=== PATIENT | male | born 1985 | race Caucasian/White ===

== ENCOUNTER 2023-03-14 21:08 | Emergency (ER) | payer OTHER, SELFPAY ==
[2023-03-14] VITALS (15 sets, daily range): BP systolic 124–153; BP diastolic 66–89; PULSE 83–87; RESP 14–16; TEMP 36.6; O2SAT 94–98
--- NOTE | ~2023-03-14 | CT_ITS ---
CT of the Abdomen and Pelvis: Indication: Abdominal pain Technique: 2.5 mm axial scans were obtained through the abdomen and pelvis following intravenous adm inistration of 100 cc of Omnipaque 350. Dose reduction technique was used on this scan by utilizing a utomated exposure control and iterative reconstruction technique. The dose-length product (DLP) was 1 436.82 mGy-cm. Findings: Scans through the lung bases are unremarkable. The liver, spleen, pancreas, right adrenal gland, and kidneys are within normal limits. Small gallsto di are present. 1.5 cm left adrenal nodule is indeterminate. No evidence of aortic aneurysm. No lym phadenopathy. There is an extremely large, wide necked ventral hernia containing transverse colon and numerous smal l bowel loops as well as mesenteric fat. No bowel obstruction or bowel wall thickening. Images through the pelvis were performed. Urinary bladder unremarkable. Prostate gland and seminal ve sicles are unremarkable. No ascites. Impression: Very large, wide necked ventral hernia containing colon and small bowel. No bowel obstruction or yancy l wall thickening. Indeterminate 1.5 cm left adrenal nodule. Follow-up MR recommended to assess for adenoma versus other lesion. Cholelithiasis. Reviewed, dictated and finalized at location . Impression: Very large, wide necked ventral hernia containing colon and small bowel. No bow el obstruction or bowel wall thickening. Indeterminate 1.5 cm left adrenal nodule. Follow-up MR recommended to assess fo r adenoma versus other lesion. Cholelithiasis.
[2023-03-14 22:50] LABS: Basophils Absolute Auto 0.1 K/mm3 (0.0-0.1); Basophils Percent Auto 0.7 % (0.2-1.2); Eosinophils Absolute Auto 0.2 K/mm3 (0-0.3); Eosinophils Percent Auto 2.8 % (0-4.4); Hematocrit 45.9 % (42.0-52.0); Hemoglobin 16.1 g/dL (14.0-18.0); Immature Granulocyte Absolute 0.02 K/mm3 (0.00-0.031); Immature Granulocyte Percent A 0.3 % (0-0.5); Lymphocytes Absolute Auto 2.78 K/mm3 (0.9-3.2); Lymphocytes Percent Auto 39.2 % (18.3-44.2); Mean Corpuscular HGB Conc 35.1 g/dl (32-36); Mean Corpuscular Hemoglobin 32.3 pg (26-34); Mean Corpuscular Volume 92.2 fl (80-100); Mean Platelet Volume 11.5 fl (7.4-10.4); Monocytes Absolute Auto 0.6 K/mm3 (0.1-0.6); Neutrophils Absolute Auto 3.4 K/mm3 (1.3-6.7); Platelet Count Result 178 k/mm3 (150-375); Red Blood Count 4.98 M/mm3 (4.6-6.20); Red Cell Distribution Width 12.7 % (11.5-14.5); White Blood Count 7.1 K/mm3 (4.5-10.0)
[2023-03-14 22:51] LABS: Appearance Urine Clear (Clear); Bilirubin Urine Negative (Negative); Blood Urine Negative (Negative); Color Urine Yellow (Yellow); Glucose Urine UA 3+ mg/dL (Negative); Ketones Urine Trace mg/dL (Negative); Leukocyte Esterase Ur Negative LEU/UL (Negative); Nitrate Urine Negative (Negative); Protein Urine Negative (Negative); Urobilinogen Urine 0.2 mg/dL (<2.0)
[2023-03-14 22:53] LABS: Add Urine Microscopic? NO; Specific Grav Ur 1.037 (1.001-1.035)
--- NOTE | 2023-03-14 22:54 | PC.NURSE ---
Patient report received from CAROLE Degroot. All questions answered and care of patient assumed.
[2023-03-14 23:01] LABS: Alanine Aminotransferase 30 U/L (6-50); Albumin Level 4.4 g/dL (3.5-5.1); Alkaline Phosphatase 130 U/L (38-126); Anion Gap 9 mmol/L (8-16); Aspartate Amino Transferase 26 U/L (17-59); Bilirubin,Total 0.5 mg/dL (0.2-1.3); Blood Urea Nitrogen 17 mg/dL (9-20); Calcium 8.5 mg/dL (8.4-10.2); Carbon Dioxide 24 mmol/L (22-30); Chloride 97 mmol/L (98-107); Estimated CRCL calculation 138 ml/min; Estimated Glomerular Filt Rate > 60; Glucose 453 mg/dL (65-110); Lipase 138 U/L (23-300); Potassium 4.3 mmol/L (3.4-5.0); Sodium 130 mmol/L (137-145)
[2023-03-14] MEDS: ONDANSETRON INJ 4 MG/2 ML VIAL IV PUSH (23:45)
[2023-03-14] MEDS: SODIUM CHLORIDE 0.9% IV 1,000 ML 999 ML IV CONT (23:45)
[2023-03-14] MEDS: MORPHINE SULFATE (*CRX) 4 MG/ML INJ IV PUSH (23:46)
[2023-03-15] VITALS: O2SAT 94
[2023-03-15 00:01] VITALS: BP 121/71; O2SAT 95
[2023-03-15 00:02] VITALS: O2SAT 96
--- NOTE | 2023-03-15 01:12 | ED.ABDPAIN ---
HPI - Abdominal Pain General Chief Complaint: Abdominal Pain <JOSE CARLOS Ha Last Filed: 03/15/23 03:07> Stated Complaint: abdominal pain <JOSE CARLOS Ha Last Filed: 03/15/23 03:07> Time Seen by Provider: 03/14/23 22:28 <JOSE CARLOS Ha Last Filed: 03/15/23 03:07> Source: patient <JOSE CARLOS Ha Last Filed: 03/15/23 03:07> Mode of arrival: ambulatory <JOSE CARLOS Ha Last Filed: 03/15/23 03:07> Limitations: no limitations <JOSE CARLOS Ha Last Filed: 03/15/23 03:07> History of Present Illness HPI narrative: Patient is a 37-year-old male who presents to the ED with report of left-sided abdominal pain. Patient reports a history of frequent diverticulitis, 8 previous abdominal surgeries, and large ventral hernia needing repair. Patient recently moved to [facility]. Most of surgeries were performed in the [place] region. He states he has intermittent pain since the surgeries, but has not had issues with this in approximately 9 months. He began having pain Monday, which was mild at first. Pain has since progressively worsened. He reports a constant dull pain with intermittent sharp stabbing pains. He has not taken anything today for the pain. Denies any nausea, vomiting, diarrhea, constipation. Patient reports around 4 bowel movements a day, which is normal for him. Denies rectal bleeding, melena, fevers, urinary symptoms. <JOSE CARLOS Ha Last Filed: 03/15/23 03:07> Related Data Allergies/Adverse Reactions: Allergies Allergy/AdvReac Type Severity Reaction Status Date / Time No Known Allergies Allergy Verified 03/14/23 21:09 <JOSE CARLOS Ha Last Filed: 03/15/23 03:07> Review of Systems Review of Systems: CONSTITUTIONAL: Denies fever, chills, or sweats. CARDIOVASCULAR: Denies chest pain. RESPIRATORY: Denies dyspnea. GASTROINTESTINAL: See HPI. GENITOURINARY: Denies dysuria or hematuria. NEUROLOGIC: Denies headache, numbness, or weakness. <Marilia Bhatia PA-C - Last Filed: 03/15/23 03:07> All systems reviewed & are unremarkable except as noted in HPI and below <Marilia Bhatia PA-C - Last Filed: 03/15/23 03:07> [facility], [facility] Past Medical History Medical History: Medical History (Updated 03/16/23 @ 00:00 by Sury Pandya) Diverticulitis <Marilia Bhatia PA-C - Last Filed: 03/15/23 03:07> Surgical History Surgical History: Surgical History (Updated 03/15/23 @ 01:15 by Marilia Bhatia PA-C) History of bowel resection <Marilia Bhatia PA-C - Last Filed: 03/15/23 03:07> Social History Social History: Social History (Updated 03/15/23 @ 01:15 by Marilia Bhatia PA-C) Smoking status: Never smoker <Marilia Bhatia PA-C - Last Filed: 03/15/23 03:07> Exam Narrative: GENERAL: Uncomfortable appearing, obese with BMI of 36, non-toxic, in mild acute distress due to pain. HEAD: Normocephalic, atraumatic. NECK: Supple. No adenopathy, no masses. RESPIRATORY: Airway patent, respirations nonlabored. Clear to auscultation bilaterally, no rales, rhonchi, wheezing. CARDIOVASCULAR: Regular rate and rhythm without murmurs, rubs, or gallops. Peripheral pulses 2+ and equal bilaterally. ABDOMINAL: Soft, mild tenderness to palpation in left mid and lower abdomen, nondistended, no hepatosplenomegaly. Normoactive BS. MUSCULOSKELETAL: Moves all extremities. Strength/ROM intact without gross deformities. SKIN: Warm, dry, normal color. No rashes. NEURO: A&O X3. Speech clear. Cranial nerves II-XII grossly intact. Steady gait. No ataxic movements. PSYCHIATRIC: Tearful. Normal interaction. <Marilia Bhatia PA-C - Last Filed: 03/15/23 03:07> Course BISQUE TILE BURNER/PA Physician Supervision This is a was performed by both a physician and an APC. I performed all aspects of the MDM as documented w/ the following additions: 37-y
[2023-03-15 01:46] VITALS: O2SAT 96
[2023-03-15] MEDS: KETOROLAC 30 MG/ML VIAL (*BKC) IV PUSH (02:02)
[2023-03-15 02:09] LABS: Hemoglobin A1C 12.7 % (<5.7)
== END 2023-03-15 03:25 | disposition home or self-care (01) ==
PROVIDERS: Emergency Medicine; Emergency Provider Physician Assistant
DX: K57.90 Diverticulosis of intestine, part unspecified, without perforation or abscess without bleeding (principal); K43.9 Ventral hernia without obstruction or gangrene; E11.65 Type 2 diabetes mellitus with hyperglycemia; Z90.49 Acquired absence of other specified parts of digestive tract; K80.20 Calculus of gallbladder without cholecystitis without obstruction; E27.8 Other specified disorders of adrenal gland; Z79.84 Long term (current) use of oral hypoglycemic drugs
CPT/HCPCS: 36415; 74177; 80053; 81003; 83036; 83690; 85025; 96361; 96374; 96375; 99284; J1885; J2270; J2405; J7030; Q9967

== ENCOUNTER 2023-07-25 14:21 | Emergency (ER) | payer OTHER, SELFPAY ==
--- NOTE | ~2023-07-25 | CT_ITS ---
EXAMINATION: CT abdomen pelvis w con DATE: 07/25/2023 19:04 INDICATION: right lower quadrant pain TECHNIQUE: Computed tomography (CT) of the abdomen and pelvis was performed with 100 mL Omnipaque-350 intravenous contrast. Automated exposure control and iterative reconstruction technique were employe d. The dose-length product was 1679.07 mGy-cm. COMPARISON: 03/15/2023. FINDINGS: Lower thorax: Unremarkable Liver: Diffuse fatty infiltration. Biliary/Gallbladder: Collapsed gallbladder. Cholelithiasis. Calcification in or adjacent to the cysti c duct, similar to the prior study. No bile duct dilation. Pancreas: No mass or duct dilation. Spleen: Normal. Adrenals: 1.5 cm indeterminate density left adrenal mass.. Kidneys: No suspicious mass, obstructing stone, or hydronephrosis. GI tract: Mild distal esophageal wall edema. No small or large bowel dilation. Uncomplicated appearin g small bowel anastomosis. Uncomplicated appearing sigmoid anastomosis. Appendix surgically absent. Mesentery/Peritoneum: No ascites, mass, or free air. Retroperitoneum: No mass. Pelvis: Mild bladder wall thickening in a partially distended urinary bladder Remaining pelvic organs are within normal limits. Soft Tissues: Significant anterior abdominal wall diastases. Bones: No acute osseous finding. IMPRESSION: Mild esophagitis. Hepatic steatosis. Collapsed gallbladder which limits evaluation. Cholelithiasis. Possible cystic duct stone. Correlate with right upper quadrant pain and biliary labs. 1.5 cm indeterminate left adrenal mass, probably benign, consider 12 month follow-up adrenal CT. Sly mmend adrenal CT now if there is a history of cancer. Cystitis versus bladder wall thickening from incomplete distention. Reviewed, dictated and finalized at location K. IMPRESSION: Mild esophagitis. Hepatic steatosis. Collapsed gallbladder which limits evaluation. Cholelithiasis. Possible cystic duct stone. Correlate with right upper quadrant pain and biliary labs. 1.5 cm indeterminate left adrenal mass, probably benign, consider 12 month foll ow-up adrenal CT. Recommend adrenal CT now if there is a history of cancer. Cystitis versus bladder wall thickening from incomplete distention.
--- NOTE | ~2023-07-25 | US_ITS ---
EXAMINATION: US abdomen limited DATE: 07/25/2023 20:45 INDICATION: RUQ pain, abnl ct scan TECHNIQUE: Multiple grayscale and Doppler ultrasound images of limited portions of the abdomen were o btained. COMPARISON: CT abdomen pelvis, same date. FINDINGS: The visualized portions of the pancreas are normal. The liver is enlarged with increased ec hogenicity and normal echotexture. No surface nodularity. Normal hepatopetal flow in the main portal vein. Mobile gallstone. No gallbladder wall thickening. Trace pericholecystic fluid. The common bile duct measures 4 mm. There was a positive sonographic Sultana sign. Patent IVC. The right kidney measur es 14.3 x 6.1 x 6.9 cm. No hydronephrosis. IMPRESSION: Cholelithiasis. Trace pericholecystic fluid. Positive sonographic Sultana sign. These findings may rep resent acute cholecystitis in the appropriate clinical and laboratory context. The possible small cystic duct stone noted in the prior CT was not visualized sonographically. Echogenic liver, most commonly due to steatosis but also can be seen with hepatitis and fibrosis. Reviewed, dictated and finalized at location K. IMPRESSION: Cholelithiasis. Trace pericholecystic fluid. Positive sonographic Sultana sign. These findings may represent acute cholecystitis in the appropriate clinical an d laboratory context. The possible small cystic duct stone noted in the prior CT was not visualized s onographically. Echogenic liver, most commonly due to steatosis but also can be seen with hepat itis and fibrosis.
[2023-07-25 14:56] VITALS: BP 126/82; PULSE 94; RESP 20; TEMP 36; O2SAT 98
[2023-07-25 15:14] LABS: Basophils Percent Auto 0.5 % (0.2-1.2); Eosinophils Absolute Auto 0.2 K/mm3 (0-0.3); Eosinophils Percent Auto 2.3 % (0-4.4); Hematocrit 48.6 % (42.0-52.0); Hemoglobin 16.7 g/dL (14.0-18.0); Immature Granulocyte Absolute 0.02 K/mm3 (0.00-0.031); Immature Granulocyte Percent A 0.3 % (0-0.5); Lymphocytes Absolute Auto 2.27 K/mm3 (0.9-3.2); Lymphocytes Percent Auto 30.7 % (18.3-44.2); Mean Corpuscular HGB Conc 34.4 g/dl (32-36); Mean Corpuscular Hemoglobin 31.7 pg (26-34); Mean Corpuscular Volume 92.2 fl (80-100); Mean Platelet Volume 10.8 fl (7.4-10.4); Monocytes Absolute Auto 0.8 K/mm3 (0.1-0.6); Monocytes Percent Auto 10.5 % (2.6-8.5); Neutrophils Absolute Auto 4.1 K/mm3 (1.3-6.7); Neutrophils Percent Auto 55.7 % (45.5-73.1); Platelet Count Result 193 k/mm3 (150-375); Red Blood Count 5.27 M/mm3 (4.6-6.20); Red Cell Distribution Width 12.5 % (11.5-14.5); White Blood Count 7.4 K/mm3 (4.5-10.0)
[2023-07-25 15:18] LABS: Appearance Urine Clear (Clear); Bilirubin Urine Negative (Negative); Blood Urine Negative (Negative); Color Urine Yellow (Yellow); Glucose Urine UA 3+ mg/dL (Negative); Ketones Urine Negative (Negative); Leukocyte Esterase Ur Negative LEU/UL (Negative); Nitrate Urine Negative (Negative); Protein Urine Negative (Negative); Urobilinogen Urine 0.2 mg/dL (<2.0); pH Urine 5.5 (5.0-9.0)
[2023-07-25 15:24] LABS: Alanine Aminotransferase 32 U/L (6-50); Albumin Level 4.8 g/dL (3.5-5.1); Alkaline Phosphatase 93 U/L (38-126); Anion Gap 11 mmol/L (8-16); Aspartate Amino Transferase 26 U/L (17-59); Bilirubin,Total 0.6 mg/dL (0.2-1.3); Blood Urea Nitrogen 11 mg/dL (9-20); Calcium 9.3 mg/dL (8.4-10.2); Carbon Dioxide 25 mmol/L (22-30); Chloride 96 mmol/L (98-107); Estimated CRCL calculation 176 ml/min; Estimated Glomerular Filt Rate > 60; Glucose 404 mg/dL (65-110); Lipase 150 U/L (23-300); Potassium 4.2 mmol/L (3.4-5.0); Sodium 132 mmol/L (137-145)
[2023-07-25 15:26] LABS: Add Urine Microscopic? NO; Specific Grav Ur 1.042 (1.001-1.035)
--- NOTE | 2023-07-25 17:21 | ED.GENADULT ---
HPI - General Adult General Chief complaint: Abdominal Pain <Kassandra Moore February - Last Filed: 07/25/23 17:23> Stated complaint: abdominal pain <Kassandra Moore February - Last Filed: 07/25/23 17:23> Time Seen by Provider: 07/25/23 17:16 <Kassandra Moore February EMERGENCY DOCTOR - Last Filed: 07/25/23 17:23> Source: patient <Marilia Bhatia PA-C - Last Filed: 07/26/23 03:40> Mode of arrival: ambulatory <Marilia Bhatia PA-C - Last Filed: 07/26/23 03:40> Limitations: no limitations <Marilia Bhatia PA-C - Last Filed: 07/26/23 03:40> History of Present Illness HPI narrative: Tariq Morales is a 38 y/o male with hx of bowel obstructions/ ostomy take down/ abdominal hernia repair surgery who presents today with new onest right mid to right lower abdominal pain that is sharp and pulling. Last normal BM was today and loose but normal for him. Denies nausea/vomiting/testicular pain/ fever/chills. <Kassandra Moore February, - Last Filed: 07/25/23 17:23> Tariq Morales is a 38 y/o male with hx of bowel obstructions/ ostomy take down/ abdominal hernia repair surgery who presents today with new onest right mid to right lower abdominal pain that is sharp and pulling. Last normal BM was today and loose but normal for him. Denies nausea/vomiting/testicular pain/ fever/chills. Patient reports pain began this morning, constant since then, intermittent sharp stabbing pains that feels as though something is ripping inside of his stomach. He has not tried anything for pain today. <Marilia Bhatia PA-C - Last Filed: 07/26/23 03:40> Related Data Allergies/adverse reactions: Allergies Allergy/AdvReac Type Severity Reaction Status Date / Time No Known Allergies Allergy Verified 03/14/23 21:09 <Kassandra Moore February, EMERGENCY DOCTOR - Last Filed: 07/25/23 17:23> Review of Systems Review of Systems: CONSTITUTIONAL: Denies fever, chills, or sweats. EYES: Denies visual changes, redness, or discharge. ENT: Denies rhinorrhea, congestion, sore throat, or otalgia. CARDIOVASCULAR: Denies chest pain, palpitations, or edema. RESPIRATORY: Denies cough or dyspnea. GASTROINTESTINAL: See HPI. GENITOURINARY: Denies dysuria or hematuria. SKIN: Denies rash or itching. MUSCULOSKELETAL: Denies back pain, joint pain, or myalgia. NEUROLOGIC: Denies headache, numbness, or weakness. <Marilia Bhatia PA-C - Last Filed: 07/26/23 03:40> All systems reviewed & are unremarkable except as noted in HPI and below <Marilia Bhatia PA-C - Last Filed: 07/26/23 03:40> [facility] Past Medical History Medical History: Medical History Diverticulitis <Kassandra Lyles APRN - Last Filed: 07/25/23 17:23> Surgical History Surgical History: Surgical History History of bowel resection <Kassandra Lyles APRN - Last Filed: 07/25/23 17:23> Social History Social History: Social History Smoking status: Never smoker <Kassandra Lyles EMERGENCY DOCTOR - Last Filed: 07/25/23 17:23> Exam Narrative: GENERAL: Uncomfortable appearing, obese with BMI of 35.2, non-toxic, in mild acute distress due to pain. HEAD: Normocephalic, atraumatic. NECK: Supple. No adenopathy, no masses. RESPIRATORY: Airway patent, respirations nonlabored. Clear to auscultation bilaterally, no rales, rhonchi, wheezing. CARDIOVASCULAR: Regular rate and rhythm without murmurs, rubs, or gallops. Peripheral pulses 2+ and equal bilaterally. ABDOMINAL: Soft, focal tenderness in right upper quadrant, no rebound, nondistended, no hepatosplenomegaly. Normoactive BS. Large ventral hernia encompassing almost the entirety of the anterior abdominal wall, soft, easily reducible. Scattered scarring to abdomen. MUSCULOSKELETAL: Moves all extremities. Strength/ROM intact without gross deformities. SKIN: Warm, dry, normal color. N
--- NOTE | 2023-07-25 19:00 | ED.ABDPAIN ---
HPI - Abdominal Pain General Chief Complaint: Abdominal Pain Stated Complaint: abdominal pain Time Seen by Provider: 07/25/23 17:16 Source: patient Mode of arrival: ambulatory Limitations: no limitations Related Data Allergies Allergy/AdvReac Type Severity Reaction Status Date / Time No Known Allergies Allergy Verified 03/14/23 21:09 [facility] Past Medical History Medical History (Updated 03/16/23 @ 00:00 by Sury Pandya) Diverticulitis Surgical History Surgical History (Updated 03/15/23 @ 01:15 by Marilia Bhatia PA-C) History of bowel resection Social History Social History (Updated 03/15/23 @ 01:15 by Marilia Bhatia PA-C) Smoking status: Never smoker Course Vital Signs Vital signs: Vital Signs Temperature 96.8 F L 07/25/23 14:56 Pulse Rate 94 07/25/23 14:56 Respiratory Rate 20 07/25/23 14:56 Blood Pressure 126/82 07/25/23 14:56 Pulse Oximetry 98 07/25/23 14:56 Oxygen Delivery Room Air 07/25/23 14:56 Temperature 96.8 F L 07/25/23 14:56 Pulse Rate 94 07/25/23 14:56 Respiratory Rate 20 07/25/23 14:56 Blood Pressure 126/82 07/25/23 14:56 Pulse Oximetry 98 07/25/23 14:56 Oxygen Delivery Room Air 07/25/23 14:56 MDM - Abdominal Pain Lab Data 07/25/23 15:04 07/25/23 15:04 Labs: Lab Results 07/25/23 Range/Units 15:04 WBC 7.4 (4.5-10.0) K/mm3 RBC 5.27 (4.6-6.20) M/mm3 Hgb 16.7 (14.0-18.0) g/dL Hct 48.6 (42.0-52.0) % MCV 92.2 (80-100) fl MCH 31.7 (26-34) pg MCHC 34.4 (32-36) g/dl RDW 12.5 (11.5-14.5) % Plt Count 193 (150-375) k/mm3 MPV 10.8 H (7.4-10.4) fl Immature Gran % (Auto) 0.3 (0-0.5) % Neut % (Auto) 55.7 (45.5-73.1) % Lymph % (Auto) 30.7 (18.3-44.2) % [place] % (Auto) 10.5 H (2.6-8.5) % Eos % (Auto) 2.3 (0-4.4) % Baso % (Auto) 0.5 (0.2-1.2) % Lymph # (Auto) 2.27 (0.9-3.2) K/mm3 [place] # (Auto) 0.8 H (0.1-0.6) K/mm3 Eos # (Auto) 0.2 (0-0.3) K/mm3 Baso # (Auto) 0.0 (0.0-0.1) K/mm3 Abs Immat Gran (auto) 0.02 (0.00-0.031) K/mm3 Absolute Neuts (auto) 4.1 (1.3-6.7) K/mm3 Absolute Nucleated RBC 0.0 (0.0-0.012) K/mm3 Nucleated RBC % 0.0 (0.0-0.2) % Sodium 132 L (137-145) mmol/L Potassium 4.2 (3.4-5.0) mmol/L Chloride 96 L (98-107) mmol/L Carbon Dioxide 25 (22-30) mmol/L Anion Gap 11 (8-16) mmol/L BUN 11 D (9-20) mg/dL Creatinine 0.70 (0.7-1.3) mg/dL Estim Creat Clear Calc 176 ml/min Estimated GFR > 60 (59 - ) Glucose 404 H (65-110) mg/dL Calcium 9.3 (8.4-10.2) mg/dL Total Bilirubin 0.6 (0.2-1.3) mg/dL AST 26 (17-59) U/L ALT 32 (6-50) U/L Alkaline Phosphatase 93 (38-126) U/L Total Protein 8.0 (6.3-8.2) g/dL Albumin 4.8 (3.5-5.1) g/dL Lipase 150 (23-300) U/L Urine Color Yellow (Yellow) Urine Appearance Clear (Clear) Urine pH 5.5 (5.0-9.0) Ur Specific [place] 1.042 H (1.001-1.035) Urine Protein Negative (Negative) mg/dL Urine Glucose (UA) 3+ H (Negative) mg/dL Urine Ketones Negative (Negative) mg/dL Ur Blood (Man) Negative (Negative) Urine Nitrate Negative (Negative) Urine Bilirubin Negative (Negative) Urine Urobilinogen 0.2 (<2.0) mg/dL Leukocyte Esterase Rfl Negative (Negative) MIGUEL/UL Discharge Plan Discharge Instructions: Antibiotic Form Prescriptions: No Action metformin 1,000 mg tablet extended release 24 hr 1,000 mg PO BID Qty: 60 0RF Follow-up/Referrals: PHYSICIAN NOT ON STAFF,NONSTAFF [Non-Staff] -
[2023-07-25] MEDS: HYDROmorphone HCL INJ (*CRX) 1 MG/ML SYR IV PUSH ×2 (19:50→21:50)
[2023-07-25] MEDS: ONDANSETRON INJ 4 MG/2 ML VIAL IV PUSH (19:51)
[2023-07-25] MEDS: SODIUM CHLORIDE 0.9% IV 1,000 ML 999 ML IV CONT (19:51)
[2023-07-25 19:54] VITALS: BP 124/88; PULSE 75; RESP 15; O2SAT 95
[2023-07-25 20:13] LABS: Hemoglobin A1C 11.9 % (<5.7)
[2023-07-25 23:23] VITALS: BP 126/66; PULSE 72; RESP 17; O2SAT 95
== END 2023-07-25 23:44 | disposition home or self-care (01) ==
PROVIDERS: Emergency Medicine; Emergency Provider Physician Assistant
DX: K80.20 Calculus of gallbladder without cholecystitis without obstruction (principal); E11.65 Type 2 diabetes mellitus with hyperglycemia
CPT/HCPCS: 36415; 74177; 76705; 80053; 81003; 83036; 83690; 85025; 96361; 96374; 96375; 96376; 99284; J1170; J2405; J7030; Q9967

== ENCOUNTER 2023-10-10 13:07 | Emergency (ER) | payer OTHER, SELFPAY ==
--- NOTE | ~2023-10-10 | US_ITS ---
EXAMINATION: US abdomen limited DATE: 10/10/2023 15:49 INDICATION: Right upper quadrant pain TECHNIQUE: Multiple grayscale and Doppler ultrasound images of the abdomen were obtained. COMPARISON: 07/25/2023, CT from today FINDINGS: Bowel gas obscures visualization of the pancreas. The visualized portions of the pancreas a re unremarkable. The liver demonstrates increased echogenicity, heterogenous echotexture, and decreas ed through transmission. No surface nodularity. Normal hepatopetal flow in the main portal vein. A st one is present in the nondistended gallbladder. No gallbladder wall thickening or pericholecystic flu id. The normal common bile duct measures 6 mm. Sonographic Sultana sign is present. IMPRESSION: 1. Cholelithiasis and sonographic Sultana sign without additional sonographic findings of acute cholec ystitis. Findings are equivocal for acute cholecystitis. Consider nuclear hepatobiliary scan. Reviewed, dictated and finalized at location L. K MECHANIC IMPRESSION: 1. Cholelithiasis and sonographic Sultana sign without additional sonographic fi ndings of acute cholecystitis. Findings are equivocal for acute cholecystitis. Consider nuclear hepatobiliary scan.
--- NOTE | ~2023-10-10 | CT_ITS ---
EXAMINATION: CT abdomen pelvis w con INDICATION: Right-sided abdominal pain TECHNIQUE: Computed tomographic images of the abdomen and pelvis were obtained after the administrati on of 100 cc of Omnipaque 350 intravenous contrast. The dose-length product (DLP) was 1391.92 mGy-cm. Automated exposure control and iterative reconstruction technique were employed. COMPARISON: 07/25/2023 FINDINGS: Minimal dependent atelectasis is present in the lung bases. The heart size is normal. There is a small sliding hiatal hernia. The liver is diffusely low in attenuation when compared with the s pleen, consistent with hepatic steatosis. Stones are present in the nondistended gallbladder. The spl een, pancreas, and right adrenal gland are normal. There is a 1.5 cm soft tissue density mass of the left adrenal gland. The kidneys are unremarkable. There is a [place] ventral hernia containing nono bstructed large and small bowel. There is moderate lumbar spondylosis at L4-5 IMPRESSION: 1. [place] ventral hernia containing nonobstructed large and small bowel. 2. 1.5 cm left adrenal mass, likely benign in the absence of known malignancy. Consider follow-up adr enal CT in 12 months. 3. Cholelithiasis without evidence of cholecystitis. Reviewed, dictated and finalized at location L. N FACTORS ADVISOR LEAD IMPRESSION: 1. [place] ventral hernia containing nonobstructed large and small bowel. 2. 1.5 cm left adrenal mass, likely benign in the absence of known malignancy. Consider follow-up adrenal CT in 12 months. 3. Cholelithiasis without evidence of cholecystitis.
[2023-10-10 13:11] VITALS: BP 134/85; PULSE 99; RESP 16; TEMP 36.2; O2SAT 97
[2023-10-10 13:22] LABS: Basophils Absolute Auto 0.1 K/mm3 (0.0-0.1); Basophils Percent Auto 0.7 % (0.2-1.2); Eosinophils Absolute Auto 0.1 K/mm3 (0-0.3); Eosinophils Percent Auto 1.8 % (0-4.4); Hematocrit 49.8 % (42.0-52.0); Hemoglobin 16.8 g/dL (14.0-18.0); Immature Granulocyte Absolute 0.02 K/mm3 (0.00-0.031); Immature Granulocyte Percent A 0.3 % (0-0.5); Lymphocytes Absolute Auto 2.71 K/mm3 (0.9-3.2); Lymphocytes Percent Auto 38.4 % (18.3-44.2); Mean Corpuscular HGB Conc 33.7 g/dl (32-36); Mean Corpuscular Hemoglobin 31.3 pg (26-34); Mean Corpuscular Volume 92.7 fl (80-100); Mean Platelet Volume 10.1 fl (7.4-10.4); Monocytes Absolute Auto 0.9 K/mm3 (0.1-0.6); Monocytes Percent Auto 12.6 % (2.6-8.5); Neutrophils Absolute Auto 3.3 K/mm3 (1.3-6.7); Neutrophils Percent Auto 46.2 % (45.5-73.1); Platelet Count Result 230 k/mm3 (150-375); Red Blood Count 5.37 M/mm3 (4.6-6.20); Red Cell Distribution Width 13.1 % (11.5-14.5); White Blood Count 7.1 K/mm3 (4.5-10.0)
[2023-10-10 13:32] LABS: Alanine Aminotransferase 37 U/L (6-50); Albumin Level 4.9 g/dL (3.5-5.1); Alkaline Phosphatase 69 U/L (38-126); Anion Gap 11 mmol/L (8-16); Aspartate Amino Transferase 31 U/L (17-59); Bilirubin,Total 0.5 mg/dL (0.2-1.3); Blood Urea Nitrogen 15 mg/dL (9-20); Calcium 9.5 mg/dL (8.4-10.2); Carbon Dioxide 24 mmol/L (22-30); Chloride 101 mmol/L (98-107); Estimated CRCL calculation 153 ml/min; Estimated Glomerular Filt Rate > 60; Glucose 144 mg/dL (65-110); Lipase 101 U/L (23-300); Potassium 4.2 mmol/L (3.4-5.0); Sodium 136 mmol/L (137-145)
[2023-10-10 13:33] LABS: Appearance Urine Clear (Clear); Bilirubin Urine Negative (Negative); Blood Urine Negative (Negative); Color Urine Yellow (Yellow); Glucose Urine UA 3+ mg/dL (Negative); Ketones Urine Negative (Negative); Leukocyte Esterase Ur Negative LEU/UL (Negative); Nitrate Urine Negative (Negative); Protein Urine Negative (Negative); Urobilinogen Urine 0.2 mg/dL (<2.0); pH Urine 5.5 (5.0-9.0)
[2023-10-10 13:38] LABS: Add Urine Microscopic? YES; Specific Grav Ur 1.047 (1.001-1.035)
--- NOTE | 2023-10-10 14:39 | ED.ABDPAIN ---
HPI - Abdominal Pain General Chief Complaint: Abdominal Pain Stated Complaint: abd pain Time Seen by Provider: 10/10/23 16:05 Source: patient Mode of arrival: ambulatory Limitations: no limitations History of Present Illness HPI narrative: This is a 38-year-old male that presents to the emergency department for abdominal pain ongoing since yesterday. Reports sharp pain in his right upper quadrant and right lower quadrant. This has been constant in nature which prompted him to be seen. Denies fevers, vomiting, or diarrhea. Related Data Allergies Allergy/AdvReac Type Severity Reaction Status Date / Time No Known Allergies Allergy Verified 03/14/23 21:09 Review of Systems Review of Systems: CONSTITUTIONAL: Denies fever GASTROINTESTINAL: Reports abdominal pain, nausea. Denies vomiting, or diarrhea. GENITOURINARY: Denies dysuria or hematuria. All systems reviewed & are unremarkable except as noted in HPI and below PMFSH Past Medical History Medical History Diverticulitis Surgical History Surgical History History of bowel resection Social History Social History Smoking status: Never smoker Exam Narrative: GENERAL: Well-appearing, well-nourished, and in no acute distress. HEAD: Normocephalic, atraumatic. EYES: EOMI. CHEST: Clear to auscultation. No respiratory distress. No wheezes rales or rhonchi HEART: Regular rate and rhythm. No murmur heard. Normal peripheral pulses. ABDOMEN: Soft, nondistended, normal active bowel sounds. Tender to palpation in the right upper quadrant without guarding EXTREMITIES: Normal range of motion. No edema. SKIN: Warm, dry, no rash. NEURO: No focal deficits. Alert and oriented x3. PSYCH: Normal mood and affect Course Course Emergency Course: patient updated on workup and agrees with plan of care Vital Signs Vital signs: Vital Signs Temperature 97.2 F L 10/10/23 13:11 Pulse Rate 99 10/10/23 13:11 Respiratory Rate 16 10/10/23 13:11 Blood Pressure 134/85 10/10/23 13:11 Pulse Oximetry 97 10/10/23 13:11 Oxygen Delivery Room Air 10/10/23 13:11 Temperature 97.2 F L 10/10/23 13:11 Pulse Rate 99 10/10/23 13:11 Respiratory Rate 16 10/10/23 13:11 Blood Pressure 134/85 10/10/23 13:11 Pulse Oximetry 97 10/10/23 13:11 Oxygen Delivery Room Air 10/10/23 13:11 MDM - Abdominal Pain MDM Narrative Medical decision making narrative: Medical screening exam performed by advanced practice provider in triage Patient presents to the emergency department for right upper quadrant pain. He is afebrile and nontoxic appearing. His vitals are stable. CBC without leukocytosis. Metabolic panel without concerning findings. Lipase is normal. Urine without evidence of infection. CT abdomen and pelvis shows cholelithiasis without evidence of cholecystitis. Right upper quadrant ultrasound shows the same. Patient was updated on his workup. Resting comfortably. He does report he is following with a general surgeon for this currently. Was instructed on low-fat diet and will be given pain medication as needed. He was given warnings to return to the ER Differential Diagnosis Differential diagnosis: Likely calculus of kidney, constipation, diverticulitis and other (biliary colic) Lab Data 10/10/23 13:17 10/10/23 13:17 Labs: Lab Results 10/10/23 10/10/23 Range/Units 13:17 13:20 WBC 7.1 (4.5-10.0) K/mm3 RBC 5.37 (4.6-6.20) M/mm3 Hgb 16.8 (14.0-18.0) g/dL Hct 49.8 (42.0-52.0) % MCV 92.7 (80-100) fl MCH 31.3 (26-34) pg MCHC 33.7 (32-36) g/dl RDW 13.1 (11.5-14.5) % Plt Count 230 (150-375) k/mm3 MPV 10.1 (7.4-10.4) fl Immature Gran % (Auto) 0.3 (0-0.5) % Neut % (Auto) 46.2 (45.5-73.1) %
[2023-10-10] MEDS: ONDANSETRON INJ 4 MG/2 ML VIAL IV PUSH (14:58)
[2023-10-10] MEDS: MORPHINE SULFATE (*CRX) 4 MG/ML INJ IV PUSH (14:59)
[2023-10-10] MEDS: KETOROLAC 15 MG/ML VIAL (*BKC) IV PUSH (15:55)
[2023-10-10 16:18] VITALS: BP 136/82; PULSE 94; RESP 16; O2SAT 97
== END 2023-10-10 16:19 | disposition home or self-care (01) ==
PROVIDERS: Emergency Medicine; Emergency Provider Physician Assistant
DX: K80.50 Calculus of bile duct without cholangitis or cholecystitis without obstruction (principal)
CPT/HCPCS: 36415; 74177; 76705; 80053; 81001; 83690; 85025; 96374; 96375; 99284; J1885; J2270; J2405; Q9967